=== PATIENT | male | born 1965 | race African-American/Black ===

== ENCOUNTER 2025-08-03 02:10 | Emergency (ER) | payer OTHER, MEDICAID ==
[~2025-08-03] VITALS: Ht 180.3 cm; Wt 85.0 kg
[2025-08-03 04:39] VITALS: BP 140/80; PULSE 96; RESP 16; TEMP 98; O2SAT 98
== END 2025-08-03 02:31 | disposition home or self-care (01) ==
LOC: ER 02:10
DX: R05.9 Cough, unspecified (principal); Z88.1 Allergy status to other antibiotic agents
CPT/HCPCS: 99283